=== PATIENT | male | born 1965 | race Hispanic/Latino ===

== ENCOUNTER 2021-06-04 21:18 | Emergency (ER) | payer SELFPAY ==
[2021-06-04] MEDS ORDERED: HYDROcodone/ACETAMINOPHEN 10-325MG TAB PO ONE (22:50)
[2021-06-04] MEDS ORDERED: ONDANSETRON 4 MG ODT TAB PO ONE (22:50)
--- NOTE | 2021-06-04 23:03 | Emergency Department Report ---
ED General Adult HPI - General Chief complaint: Pain General Stated complaint: BILATERAL LEG/FOOT PAIN HX: BONE CA Source: patient Mode of arrival: Ambulatory Limitations: No Limitations - History of Present Illness Initial comments: Patient is a 56-year-old male with a history of omb-pkfxdac-iulolfnbm diabetes, hypertension and multiple myeloma who presented to the ED with acute exacerbation of his chronic pain characterized by bilateral knee pain, hip pain, and low back pain for the last 3 days. Patient states that he usually takes Minot 10 mg - 325 mg but ran out of this medication 2 days ago. Patient states that he is currently visiting from [place] and had attended a his father's but ran out of the medications before going back home. Patient states that he has up to 4 days before he goes back to his home in [place] and would like some refills of his pain medications that could last him up to 3 days. Patient also request for refill of his Metformin 1000 mg tablets that he takes twice a day after use urine out of the same. Patient denies fall, traumatic injury, heavy lifting, chest pain, shortness of breath, headache, abdominal pain, nausea, vomiting, fever, chills, cough, sore throat, dysuria, urinary frequency and urgency, numbness and tingling or weakness of lower extremities bilaterally. MD Complaint: Back pain, bilateral diffuse joint pains and aches, h/o multiple myeloma -: days(s) (3) Location: back (lower), lower extremity (bilateral knees and hips) Radiation: non-radiation Severity scale (0 -10): 7 Quality: aching, sharp Consistency: constant Improves with: none Worsens with: movement Associated Symptoms: denies other symptoms. denies: chest pain, cough, diaphoresis, fever/chills, headaches, loss of appetite, malaise, nausea/vomiting, rash, seizure, shortness of breath, syncope, weakness Treatments Prior to Arrival: none - Related Data Previous Rx's Medication Instructions Recorded Last Taken Type HYDROcodone/APAP 10-325 [Minot 1 each PO Q6HR PRN #10 tablet 06/04/21 Unknown Rx 10/325] Metformin HCl [metFORMIN] 1,000 mg PO Q12H #60 tab 06/04/21 Unknown Rx carisoprodoL [Soma] 350 mg PO TID PRN #15 tablet 06/04/21 Unknown Rx Allergies Allergy/AdvReac Type Severity Reaction Status Date / Time ketorolac [From Toradol] Allergy Hives Verified 06/04/21 22:12 ED Review of Systems ROS: Stated complaint: BILATERAL LEG/FOOT PAIN HX: BONE CA Other details as noted in HPI Constitutional: denies: chills, fever Eyes: denies: eye pain, eye discharge, vision change ENT: denies: ear pain, throat pain Respiratory: denies: cough, shortness of breath, wheezing Cardiovascular: denies: chest pain, palpitations Endocrine: no symptoms reported Gastrointestinal: denies: abdominal pain, nausea, vomiting, diarrhea, hematem esis, melena Genitourinary: denies: urgency, dysuria Musculoskeletal: back pain (lower), arthralgia (bilateral hips and knees). denies: joint swelling Skin: denies: rash, lesions Neurological: denies: headache, weakness, paresthesias Psychiatric: denies: anxiety, depression Hematological/Lymphatic: denies: easy bleeding, easy bruising ED Past Medical Hx - Past Medical History Previous Medical History?: Yes Hx Hypertension: Yes Hx Diabetes: Yes Hx Renal Disease: No Hx of Cancer: Yes (Multiple Myeloma) Additional medical history: Chronic Pain - Surgical History Past Surgical History?: Yes Additional Surgical History: Left Leg - Social History Smoking Status: Never Smoker Substance Use Type: None - Medications Home Medications: Home Medications Medication Instructions Recorded Confirmed Last Taken Type HYDROcodone/APAP 10-325 [Min[place] 1 each PO Q6HR PRN #10 tablet 06/04/21 Unknown Rx 10/325] Metformin HCl [metFORMIN] 1,000 mg PO Q12H #60 tab 06/04/21 Unknown Rx carisoprodoL [Soma] 350 mg PO TID PRN #15 tablet 06/04/21 Unknown Rx ED Physical Exam - General Limitations: No Limitations General appearance: alert, in no apparent distress - Head Head exam: Present: atraumatic, normocephalic, normal inspection - Eye Eye exam: Present: normal appearance, PERRL, EOMI Pupils: Present: normal accommodation - ENT ENT exam: Present: normal exam, normal orophraynx, mucous membranes moist, TM's normal bilaterally, normal external ear exam - Neck Neck exam: Present: normal inspection, full ROM - Respiratory Respiratory exam: Present: normal lung sounds bilaterally. Absent: respiratory distress, wheezes, rales, rhonchi, chest wall tenderness, accessory muscle use, decreased breath sounds, prolonged expiratory - Cardiovascular Cardiovascular Exam: Present: normal rhythm, tachycardia, normal heart sounds. Absent: systolic murmur, diastolic murmur, rubs, gallop - GI/Abdominal GI/Abdominal exam: Present: soft, normal bowel sounds. Absent: tenderness, guarding, rebound, hyperactive bowel sounds, hypoactive bowel sounds, organomegaly, mass - Extremities Exam Extremities exam: Present: normal inspection, full ROM, tenderness (Palpable bilateral hip and knee tenderness), normal capillary refill - Back Exam Back exam: Present: normal inspection, full ROM, tenderness (Palpable lumbosacral paraspinal musculoskeletal tenderness), muscle spasm, paraspinal tenderness. Absent: CVA tenderness (L), vertebral tenderness - Neurological Exam Neurological exam: Present: alert, oriented X3, CN II-XII intact, normal gait, reflexes normal - Psychiatric Psychiatric exam: Present: normal affect, normal mood - Skin Skin exam: Present: warm, dry, intact, normal color. Absent: rash ED Course Vital Signs 06/04/21 06/04/21 06/04/21 22:03 23:04 23:51 Temperature 98.3 F Pulse Rate 102 H 90 Respiratory 18 14 16 Rate Blood Pressure 169/106 Blood Pressure 147/90 [Right] O2 Sat by Pulse 97 98 Oximetry ED Medical Decision Making - Medical Decision Making This is a 56-year-old male with a history of nvc-ahweola-uwhagudwx diabetes, hypertension and multiple myeloma who presented to the ED with acute exacerbation of his chronic pain characterized by bilateral knee pain, hip pain, and low back pain for the last 3 days. Patient states that he usually takes Minot 10 mg - 325 mg but ran out of this medication 2 days ago. Patient states that he is currently visiting from [place] and had attended a his father's but ran out of the medications before going back home. Patient states that he has up to 4 days before he goes back to his home in [place] and would like some refills of his pain medications that could last him up to 3 days. Patient also request for refill of his Metformin 1000 mg tablets that he takes twice a day after use urine out of the same. In the ED, patient is alert and oriented x3 and is not in distress. Patient however tachycardic and anxious but appears to be in pain. Patient was treated for pain in the ED and given the fact the patient pain is chronic, patient was treated in the ED for pain and discharged home on medications. Patient was advised to follow-up with his primary care physician in [place] in the next 3 to 5 days for reevaluation. Patient was advised return to the ED immediately if symptoms get worse. - Differential Diagnosis Chronic pain; muscle spasm; muscle strain; degenerative joint disease; Critical care attestation.: If time is entered above; I have spent that time in minutes in the direct care of this critically ill patient, excluding procedure time. ED Disposition Clinical Impression: Chronic pain syndrome, Spasm of muscle of lower back Chronic low back pain Qualifiers: Back pain laterality: bilateral Sciatica presence: without sciatica Qualified Code(s): M54.50 - Low back pain, unspecified Disposition: HOME / SELF CARE / HOMELESS Is pt being admited?: No Does the pt Need Aspirin: No Condition: Stable Instructions: Muscle Cramps and Spasms, [id number], Chronic Back Pain, [id number], Pain Medicine Instructions, [id number] Additional Instructions: Take medication with food, drink plenty of fluids and follow-up with your primary care physician in 7 to 10 days for reevaluation. Return to the ED immediately if symptoms get worse. Prescriptions: Metformin HCl [metFORMIN] 1,000 mg PO Q12H #60 tab HYDROcodone/APAP 10-325 [Minot 10/325] 1 each PO Q6HR PRN #10 tablet PRN Reason: Pain carisoprodoL [Soma] 350 mg PO TID PRN #15 tablet PRN Reason: Muscle Spasm Referrals: [facility] [Provider Group] - 3-5 Days Time of Disposition: 23:06 Print Language: LEBANESE
[2021-06-04 23:53] VITALS: BP 147/90
== END 2021-06-05 00:53 | disposition home or self-care (01) ==
LOC: ED 21:18
DX: G89.4 Chronic pain syndrome (principal); M62.830 Muscle spasm of back; M54.50 Low back pain, unspecified; I10 Essential (primary) hypertension; E11.8 Type 2 diabetes mellitus with unspecified complications; Z88.6 Allergy status to analgesic agent
CPT/HCPCS: 99282; J3490; Q0162

== ENCOUNTER 2021-06-12 23:52 | Emergency (ER) | payer SELFPAY ==
[2021-06-13 01:22] VITALS: BP 147/86
[2021-06-13] MEDS ORDERED: HYDROcodone/ACETAMINOPHEN 10-325MG TAB PO ONE (01:22)
--- NOTE | 2021-06-13 01:27 | Emergency Department Report ---
ED General Adult HPI - General Chief complaint: Pain General Stated complaint: LEG & FEET PAIN Time Seen by Provider: 06/13/21 01:10 Source: patient Mode of arrival: Ambulatory Limitations: No Limitations - History of Present Illness Initial comments: Patient presents secondary to leg pain and prescription refills. He has a history of melanoma. Patient states that it is disseminated and he has multiple bony lesions and skull lesions. He has not been able to undergo treatment because of the severity of his disease. He states his oncologist was telling him that at this point, symptomatic measures were most appropriate. He was getting sick from attempts at chemo. Patient is here for his father's . He states that he was supposed to [place] last week but the civil rights attorney told him that he could not. Apparently he was the sole air to the estate and he has to stay here to get the house ready for sale. Patient reports that he is leaving . At this time, he ran out of his hydrocodone and came here for evaluation. He had been seen here previously for this. He admits to that freely. He states that he did not know what else to do so he came here for pain control. Patient is hoping that we can refill his glipizide to 10 mg in addition to hydrocodone. He has no fevers or chills per there is no cough congestion but there is no recent travel or trauma. - Related Data Previous Rx's Medication Instructions Recorded Last Taken Type Metformin HCl [metFORMIN] 1,000 mg PO Q12H #60 tab 06/04/21 Unknown Rx carisoprodoL [Soma] 350 mg PO TID PRN #15 tablet 06/04/21 Unknown Rx HYDROcodone/APAP 10-325 [[place] 1 each PO Q6HR PRN #30 tablet 06/13/21 Unknown Rx 10-325 mg TAB] glipiZIDE [Glucotrol] 10 mg PO BID #20 tab 06/13/21 Unknown Rx Allergies Allergy/AdvReac Type Severity Reaction Status Date / Time ketorolac [From Toradol] Allergy Hives Verified 06/04/21 22:12 ED Review of Systems ROS: Stated complaint: LEG & FEET PAIN Other details as noted in HPI Comment: All other systems reviewed and negative Constitutional: denies: fever Eyes: denies: vision change ENT: denies: throat pain Respiratory: denies: cough Cardiovascular: denies: palpitations Endocrine: denies: unexplained weight loss Gastrointestinal: denies: abdominal pain Genitourinary: denies: dysuria Musculoskeletal: denies: back pain Skin: denies: rash Neurological: denies: headache Hematological/Lymphatic: denies: easy bruising ED Past Medical Hx - Past Medical History Previous Medical History?: Yes Hx Hypertension: Yes Hx Diabetes: Yes Hx Renal Disease: No Hx of Cancer: Yes (Multiple Myeloma) Additional medical history: Chronic Pain - Surgical History Past Surgical History?: Yes Additional Surgical History: Left Leg - Family History Family history: cancer - Social History Smoking Status: Never Smoker Substance Use Type: Alcohol - Medications Home Medications: Home Medications Medication Instructions Recorded Confirmed Last Taken Type Metformin HCl [metFORMIN] 1,000 mg PO Q12H #60 tab 06/04/21 Unknown Rx carisoprodoL [Soma] 350 mg PO TID PRN #15 tablet 06/04/21 Unknown Rx HYDROcodone/APAP 10-325 [[place] 1 each PO Q6HR PRN #30 tablet 06/13/21 Unknown Rx 10-325 mg TAB] glipiZIDE [Glucotrol] 10 mg PO BID #20 tab 06/13/21 Unknown Rx ED Physical Exam - General Limitations: No Limitations, Other (Pulse ox noted and normal) General appearance: alert, in no apparent distress, obese - Head Head exam: Present: atraumatic, normocephalic - Eye Eye exam: Present: normal appearance, EOMI. Absent: scleral icterus - ENT ENT exam: Present: normal orophraynx, normal external ear exam - Neck Neck exam: Present: normal inspection. Absent: meningismus - Respiratory Respiratory exam: Present: normal lung sounds bilaterally. Absent: respiratory distress - Cardiovascular Cardiovascular Exam: Present: regular rate, normal rhythm - GI/Abdominal GI/Abdominal exam: Present: soft - Extremities Exam Extremities exam: Present: normal capillary refill. Absent: calf tenderness - Back Exam Back exam: Present: full ROM - Neurological Exam Neurological exam: Present: alert, oriented X3, CN II-XII intact, abnormal gait (Antalgic) - Psychiatric Psychiatric exam: Present: normal affect, normal mood - Skin Skin exam: Present: warm, dry ED Course Vital Signs 06/13/21 01:14 Temperature 98.6 F Pulse Rate 97 H Respiratory 18 Rate Blood Pressure 147/86 O2 Sat by Pulse 100 Oximetry - Reevaluation(s) Reevaluation #1: 06/13/21 01:25 Old records reviewed. Patient was discharged. ED Medical Decision Making - Medical Decision Making Patient presents secondary to oncologic pain and medication refill. He does not appear to be septic or toxic. There is no trauma that would suggest acute fracture. Is no warmth erythema suggestive of cellulitis. Patient seems to be forthcoming with his history. He does not have evidence of overt opioid withdrawal. He was treated symptomatically and told to follow-up with his doctor when he returns home. He was referred to medicine on-call. Critical Care Time: No Critical care attestation.: If time is entered above; I have spent that time in minutes in the direct care of this critically ill patient, excluding procedure time. ED Disposition Clinical Impression: Cancer associated pain, Medication refill Disposition: 01 HOME / SELF CARE / HOMELESS Is pt being admited?: No Condition: Stable Instructions: Chronic Pain, Adult Additional Instructions: Keep your follow-up appointment. If you are still in the [place] area, follow- up with the referral physician as needed. Prescriptions: glipiZIDE [Glucotrol] 10 mg PO BID #20 tab HYDROcodone/APAP 10-325 [Ephrata 10-325 mg TAB] 1 each PO Q6HR PRN #30 tablet PRN Reason: Pain Referrals: DARYA LUNA MD [Staff Physician] - 3-5 Days
== END 2021-06-13 01:40 | disposition home or self-care (01) ==
LOC: ED 23:52
DX: G89.3 Neoplasm related pain (acute) (chronic) (principal); Z76.0 Encounter for issue of repeat prescription; I10 Essential (primary) hypertension; E11.9 Type 2 diabetes mellitus without complications; Z72.89 Other problems related to lifestyle; Z88.5 Allergy status to narcotic agent; Z79.84 Long term (current) use of oral hypoglycemic drugs; Z79.899 Other long term (current) drug therapy
CPT/HCPCS: 99282